=== PATIENT | male | born 2000 | race Two or more races ===

== ENCOUNTER → 2022-06-06 | Outpatient (CLI) | payer MEDICAID ==
[2022-06-06 07:41] LABS: Basophils # (auto) 0.1 10 ^3/uL (0-0.2); Basophils % (auto) 0.8 % (0.0-2.0); Eosinophils # (auto) 0.1 10 ^3/uL (0-0.8); Eosinophils % (auto) 1.8 % (0.0-7.0); Hematocrit 44.9 % (41.0-53.0); Hemoglobin 15.4 g/dL (13.5-17.5); Lymphocytes # (auto) 3.5 10 ^3/uL (0.4-5.4); Lymphocytes % (auto) 42.4 % (10.0-50.0); Mean Corpuscular Hemoglobin 30.6 pg (28.0-32.0); Mean Corpuscular Hgb Conc. 34.4 g/dL (32.0-36.0); Monocytes # (auto) 0.8 10 ^3/uL (0-1.3); Neutrophils # (auto) 3.8 10 ^3/uL (1.6-8.6); Nucleated Red Blood Cells % 0.1 %; Red Blood Cells 5.05 10^6/uL (4.5-5.90); Red Cell Distribution Width 12.7 % (11.8-14.3); White Blood Cell 8.3 10^3/uL (4.4-10.8)
[2022-06-06 07:55] LABS: INR 1.21 (0.9-1.15)
[2022-06-06 08:23] LABS: Albumin 4.3 g/dL (3.4-5.0); Calcium 9.4 mg/dL (8.5-10.1)
[2022-06-06 08:28] LABS: BUN/Creatinine Ratio 17.9; Bilirubin, Total 1.2 mg/dL (0.2-1.0); Total Protein 7.9 g/dL (6.4-8.2)
== END | disposition home or self-care (01) ==
LOC: LAB 07:30
PROVIDERS: ATTEND Internal Medicine
DX: Z00.00 Encounter for general adult medical examination without abnormal findings (principal); N26.1 Atrophy of kidney (terminal); R00.2 Palpitations
CPT/HCPCS: 36415; 80053; 80061; 84443; 85025; 85379; 85610

== ENCOUNTER 2023-02-09 17:55 | Emergency (ER) | payer MEDICAID, OTHER ==
[~2023-02-09] VITALS: Ht 182.9 cm; Wt 69.3 kg
[2023-02-09 19:02] VITALS: BP 121/88
[2023-02-09] MEDS ORDERED: KETOROLAC TROMETH 60MG/2ML VIAL IM ONE (19:30)
[2023-02-09] MEDS ORDERED: IBUP-1456 PO (19:32)
[2023-02-09] MEDS ORDERED: CYCL-837 PO (19:32)
== END 2023-02-09 19:56 | disposition home or self-care (01) ==
LOC: ER 17:55
DX: S29.012A Strain of muscle and tendon of back wall of thorax, initial encounter (principal); X50.1XXA Overexertion from prolonged static or awkward postures, initial encounter; Y93.89 Activity, other specified; Y92.89 Other specified places as the place of occurrence of the external cause; Y99.8 Other external cause status
CPT/HCPCS: 96372; 99283; J1885

== ENCOUNTER 2023-09-15 18:26 | Emergency (ER) | payer OTHER ==
[~2023-09-15] VITALS: Ht 182.9 cm; Wt 72.2 kg
[~2023-09-15 18:26] MED LIST: CYCL-837 PO; IBUP-1456 PO
[2023-09-15] MEDS ORDERED: SILV1CRE82 EX (23:58)
[2023-09-16 01:16] VITALS: BP 132/72; PULSE 89; RESP 16; TEMP 97.5; O2SAT 97
== END 2023-09-16 01:16 | disposition home or self-care (01) ==
LOC: ER 18:26
DX: T23.102A Burn of first degree of left hand, unspecified site, initial encounter (principal); T23.101A Burn of first degree of right hand, unspecified site, initial encounter; T31.0 Burns involving less than 10% of body surface; Z79.899 Other long term (current) drug therapy; X10.2XXA Contact with fats and cooking oils, initial encounter; Y93.89 Activity, other specified; Y92.89 Other specified places as the place of occurrence of the external cause; Y99.8 Other external cause status